=== PATIENT | female | born 1970 ===

== ENCOUNTER 2021-02-20 14:06 | Emergency (ER) | payer OTHER, BC ==
[2021-02-20] MEDS ORDERED: Ibuprofen 200 MG TAB ONE (14:36)
== END 2021-02-20 16:06 | disposition home or self-care (01) ==
LOC: ERS 14:06
DX: S30.0XXA Contusion of lower back and pelvis, initial encounter (principal); S60.011A Contusion of right thumb without damage to nail, initial encounter; S40.012A Contusion of left shoulder, initial encounter; S60.222A Contusion of left hand, initial encounter; I10 Essential (primary) hypertension; F17.210 Nicotine dependence, cigarettes, uncomplicated; V29.00XA Motorcycle driver injured in collision with unspecified motor vehicles in nontraffic accident, initial encounter
CPT/HCPCS: 72100